=== PATIENT | female | born 1935 | race Caucasian/White ===

== ENCOUNTER 2016-07-07 12:44 | Inpatient (IN) | payer MEDICARE, MEDICAID ==
[~2016-07-07] VITALS: Ht 167.6 cm; Wt 66.3 kg
--- NOTE | ~2016-07-07 | PR ---
[place], [place] [facility]GR[id number] UN[facility] #: [id number] ROOM: 310 DOCTOR: TIGIST MENDES MD BIRTHDATE: [birth year] DOS: 07/11/2016 INTERVAL NOTE CHIEF COMPLAINT: "Good morning, is it time to eat breakfast." SUMMARY OF THE VISIT: The patient was interviewed as she reclined in a Graciela chair in the quiet room. She was resting at first but did awake as I approached her and responded appropriately at first to my questions. She tended later to trail off, and her responses tended to be more nonsensical the more we conversed. Nurses report she continues to exit seek and wander when up. She also continues to be more agitated in the evening hours. She did sleep after receiving the Vraylar and trazodone last night. She does seem to be tolerating the current medication regimen well. MENTAL STATUS: She is alert and oriented to self, maybe place but not time. Mood still is labile. Affect is inappropriate. Her responses tend to be short and simple, often inappropriate. There is no kobi or hypomania. There are no gross auditory or visual hallucinations noted. She has a great deal of time processing conversation, and short-term memory is exceedingly poor. PLAN: I will continue to titrate up the Exelon patch from 9.5 to 13.3 mg daily, maximizing its potential benefit to improve and maintain ADLs, behavior, and cognition. We will similarly increase the Namenda at a later date. Maintain her other psychotropics at this point in time. Engage in individual and mejia milieu activity with the ultimate plan to return to [facility] when stable. TIGIST MENDES MD CM:PNTRANS [id number] TIGIST MENDES MD 07/11/16 1103 interface
--- NOTE | ~2016-07-07 | PR ---
[place], [place] PROGRESS NOTE [id number] UNIT #: [id number] ROOM: 310 DOCTOR: CONNIE DEJESUS BIRTHDATE: [birth year] DOS: 07/12/2016 CHIEF COMPLAINT: "I just want a little off the top." SUMMARY OF VISIT: The patient was assessed in a Graciela-chair in the dining room where she had finished most of her breakfast. The patient was pleasantly confused. She thought I was her beautician and me on how to cut style and color her hair. MENTAL STATUS: Alert and oriented to self only. Again, pleasant. Affect is pleasant and appropriate, but she is grossly confused. There is no kobi or hypomania. No overt signs of auditory or visual hallucinations. Short-term memory is very poor. PLAN: We titrated the Exelon patch to the maximum dose of 13.3 mg yesterday. I am going to bump up the Namenda and change it to 5 mg in the morning and 10 mg at night, but I am also going to bump up her Vraylar to 4.5 mg q. day, see if I can help her clear a little. We will continue to try to engage in individual and mejia milieu therapy with plan to return back to [facility] once stable. VIANEY DEJESUS CNP CM:PNTRANS [id number] CONNIE DEJESUS 07/12/16 1202 interface
--- NOTE | ~2016-07-07 | WRIGHTHP ---
[place], [place] PATIENT HISTORY AND PHYSICAL EXAM [id number] UNIT #: [id number] ROOM: 310 DOCTOR: TIGIST MENDES MD BIRTHDATE: [birth year] DOS: 07/07/2016 INITIAL PSYCHIATRIC EVALUATION CHIEF COMPLAINT: "I am waiting for my father to come, let him know I am here please." SUMMARY OF THE VISIT: The patient was interviewed in the quiet room as she sat in a Graciela-chair. This is a 80-year-old white female who was sent here from [facility] in [place], [place]. The patient has been a patient there for several months and has had an escalation in her behavior. She has been extremely labile and very much verbally and physically aggressive towards others. She has been exit seeking and wandering in and out of other residents' rooms and attempting to leave the facility, requiring a great deal of redirection and a great deal of physical aggression on her part. Most recently, she had been started on Depakote to try to decrease some of the impulsivity; however, this caused her white count to dramatically decline. Subsequently, once the Depakote was discontinued, her white count has been increasing. In any case, she is admitted now to rule out organic factors, to attempt to stabilize on medication, ultimately returning back to [facility] when psychiatrically stable. PAST MEDICAL HISTORY: Remarkable for diabetes, GERD, anemia, gastric ulcer, osteoarthritis. MENTAL STATUS: The patient is alert and oriented to person only. It is unclear if she realizes she is in the hospital. She was very distraught this morning, looking for her father. She could not tell me how long she has been here nor could she tell me where she is. Even though she had breakfast in front of her, she could not tell me what she had eaten or what the food in front of her was. Her responses were very short and terse. She tended to derail and oftentimes answered questions totally inappropriately. DIAGNOSES: Brief psychotic disorder, rule out major depression, recurrent with psychotic features, and Alzheimer's dementia. PLAN: I have already started her on Vraylar 1.5 mg at bedtime. I will increase this to 3 mg at bedtime and monitor. I will start her on both Exelon patch 4.6 mg a day and Namenda 5 mg a day to address ADL maintenance, behavior and cognition. We will attempt to engage her in individual and mejia milieu activity with the plan to return home to [facility] when stable. [place], [place] PATIENT HISTORY AND PHYSICAL EXAM NAME: LIZZY WAGNER UNIT #: [id number] ROOM: 310 DOCTOR: TIGIST MENDES MD BIRTHDATE: [birth year] TIGIST MENDES MD CM:HISPHYS:PATIENT HISTORY AND PHYSICAL EXAMINATION 5 9 TIGIST MENDES MD 07/08/16920 interface
--- NOTE | ~2016-07-07 | PR ---
[place], [place] PROGRESS NOTE NAME: LIZZY WAGNER UNIT #: [id number] ROOM: 310 DOCTOR: TIGIST MENDES MD BIRTHDATE: [birth year] DOS: 07/10/2016 CHIEF COMPLAINT: "Oh Hi, there is funny stuff going on here." SUMMARY OF THE VISIT: The patient was interviewed in the dining area where she reclined in a Graciela chair. She engaged in superficial conversation that at times was grossly inappropriate to the questions asked of her. She talked a lot about her past and of gardening and having lots of scott in her yard. She was pleasantly confused for the most part. Nurses report she has periods where she becomes episodically agitated and exit seeks, but these seem to be starting to lessen slightly. MENTAL STATUS: She is alert and oriented to person, possibly place, although I do not think she truly realizes she is in the hospital, certainly not to time. Mood is still labile and at times, she is very inappropriate in her comments. Memory is very poor and she processes slowly. PLAN: I will maintain Exelon at 9.5 mg a day with the ultimate plan to titrate this up to its target dose of 13.3 mg daily. I will increase Namenda from 5 mg a day to 5 mg twice a day, maintain the Vraylar at 3 mg at bedtime and the trazodone at 50 mg at bedtime to prevent some sundowning, engage in individual and mejia milieu activity with the plan then to return to [facility] when stable. TIGIST MENDES MD CM:PNTRANS [id number] TIGIST MENDES MD 07/10/16 1515 interface
--- NOTE | ~2016-07-07 | DS ---
[place], [place] DISCHARGE SUMMARY NAME: LIZZY WAGNER [facility] #: [id number] UNIT #: [id number] ROOM: 310 DOCTOR: TIGIST MENDES MD BIRTHDATE: [birth year] DOS: 07/14/2016 CHIEF COMPLAINT: "I am waiting for my father to come, let him know I am here please." HISTORY OF PRESENT ILLNESS: This is a 80-year-old white female who was sent here from [facility] in [place], [place]. The patient has been there for several months and has had an escalation in her behavior. She is extremely labile and both verbally and physically aggressive towards others. She has been actively exit seeking and has been wandering in and out of other resident's rooms. She requires a great deal of redirection, and when redirected, has become verbally and physically aggressive. Most recently, she was started on Depakote to try to decrease some of this impulsivity; however, this caused her white count to dramatically decline. Subsequently, the Depakote was discontinued. Her white count then began to be normal again. She is admitted now to rule out organic factors and to stabilize on medication, ultimately returning back to [facility] when stable. PAST MEDICAL HISTORY: Remarkable for diabetes, GERD, anemia, gastric ulcer, and osteoarthritis. SUMMARY OF HOSPITAL COURSE: The patient was admitted to the unit where she was started on Vraylar 1.5 mg at bedtime to decrease the psychotic symptomatology that was present. She was also started back on Exelon patch 4.6 mg a day and Namenda 5 mg a day. She tolerated these medications well and gradually the Namenda was maximized out to its maximum dose of 10 mg twice daily. Likewise, the Exelon was increased to its maximum dose of 13.3 mg a day. Both of these were utilized to help maintain and improve ADLs, behavior, and cognition. The Vraylar was increased to its maximum dose during this stay at 4.5 mg at bedtime. Trazodone was added later because she was having a significant sleep disturbance, and with the combination of the Vraylar and the trazodone, her mood did stabilize, her wandering behavior ceased. She was able to be redirected more readily. She was much more pleasant and calm. She still was confused, but was able to be redirected. She had improved sufficiently by 07/14/2016 to be able to return to [facility] where I will follow her upon her return there. DIAGNOSES: Major depression, recurrent with psychotic features, and Alzheimer's dementia. DISPOSITION: To return to [place] [facility]. All of her prescriptions have been printed and will be sent with her. I will follow her upon her return there. [place], [place] DISCHARGE SUMMARY NAME: LIZZY WAGNER UNIT #: [id number] ROOM: 310 DOCTOR: TIGIST MENDES MD BIRTHDATE: [birth year] TIGIST MENDES MD CM:DISCHARG 4 7 TIGIST MENDES MD 07/14/16937 interface
--- NOTE | ~2016-07-07 | PR ---
[place], [place] PROGRESS NOTE [id number] UNIT #: [id number] ROOM: 310 DOCTOR: TIGIST MENDES MD BIRTHDATE: [birth year] DOS: 07/09/2016 CHIEF COMPLAINT: "There is silly things going on around this place." SUMMARY OF THE VISIT: The patient was attempted to be interviewed in the dining area. She had a sheet and was repeatedly spreading it out, folding it, and then refolding it. She did raise her eyes as I talked to another patient, who is grossly confused and shook her head. When I approached her to talk to her, she was somewhat derogatory about the other patients and stated that she has been seeing crazy things going on here. Nurses report that she tends to become more labile and more aggressive as the afternoon proceeds into evening. At this point, she becomes even verbally and physically aggressive. MENTAL STATUS: She is alert and oriented to person, possibly place, certainly not to time. Mood does still seem to be rather volatile when she is very easily upset. She redirects and escalante herself down relatively well at the present time. There is no overt auditory or visual hallucinations, delusions, or paranoia. Short-term memory is exceedingly poor. PLAN: I will change the time with the Vraylar from bedtime to 5 p.m. and I will also add trazodone 50 mg q.5 p.m. to decrease some of her mood lability and offer a sense of calmness. I will increase Exelon patch from 4.6 to 9.5 mg a day and make certain that she has Ativan 1 mg p.o. or IM every 4 hours as needed for agitation and anxiety, if she requires it. We will engage in individual and mejia milieu activity with a plan to return to [facility] when stable. TIGIST MENDES MD CM:PNTRANS [id number] TIGIST MENDES MD 07/09/16 1009 interface
--- NOTE | ~2016-07-07 | PR ---
[place], [place] PROGRESS NOTE [id number] UNIT #: [id number] ROOM: 310 DOCTOR: CONNIE DEJESUS BIRTHDATE: [birth year] DOS: 07/13/2016 CHIEF COMPLAINT: "Good morning." SUMMARY OF VISIT: The patient was assessed in the dining room where she was eating breakfast. She engaged in conversation, was pleasantly confused. I had seen her earlier working with physical therapy, walking the reinoso, physically appears to be getting a little bit stronger. MENTAL STATUS: She is alert and oriented to self, perhaps place. She knows that this is at home, not time. Affect pleasant and appropriate, but very confused. Yesterday, she thought I was her beautician, but today, she remembers see me in the reinoso working out. PLAN: I had increased her Vraylar yesterday. This seems to be helping and we maxed out her Exelon patch. We will continue to try to engage in individual and mejia milieu therapy. Continue with PT and OT to help her build up some strength. Long-term goal is to return her to [facility] once psychologically stable. VIANEY DEJESUS CNP CM:PNTRANS [id number] CONNIE DEJESUS 07/13/16 1012 interface
[2016-07-07] MEDS ORDERED: PANTOPRAZOLE SO40 MG PO (14:27)
[2016-07-07] MEDS ORDERED: IRON325 M1 PO (14:29)
[2016-07-07] MEDS ORDERED: GLIPIZIDE5 MG PO (14:30)
[2016-07-07] MEDS ORDERED: DOCUSATE SODIU100 MG PO (14:31)
[2016-07-07] MEDS ORDERED: VITAMIN D50000 I3 PO (14:31)
[2016-07-07] MEDS ORDERED: ATIVAN1 MG PO (14:32)
[2016-07-07 17:44] VITALS: BP 142/56
[2016-07-07 19:49] VITALS: BP 132/55
[2016-07-08 07:17] LABS: HEMOGLOBIN 9.7 g/dl (12.0-16.0); MEAN CELL VOLUME 109.9 fl (81.0-99.0); MEAN CORPUSCULAR HGB 35.5 pg (27.0-31.0); MEAN CORPUSCULAR HGB CONC 32.3 g/dl (33.0-37.0); MEAN PLATELET VOLUME 12.4 fl (9.6-12.3); PLATELET COUNT AUTOMATED 229 10*3/uL (130-400); RED BLOOD COUNT 2.73 10*6/uL (4.10-5.10); RED CELL DISTRI WIDTH 15.8 % (0-14.5); WHITE BLOOD COUNT 3.3 10*3/uL (4.8-10.8)
[2016-07-08 07:34] LABS: BASOPHIL # 0.1 10*3/uL (0-0.1); BASOPHILS 2 % (0-1); EOSINOPHIL # 0.1 10*3/uL (0-0.4); EOSINOPHILS 3 % (1-4); LYMPHOCYTE # 1.2 10*3/uL (1.3-4.4); MONOCYTE # 0.2 10*3/uL (0.1-1.0); NEUTROPHIL # 1.8 10*3/uL (2.3-7.9); NEUTROPHILS 54 % (47-73); TOTAL CELLS COUNTED 100 #CELLS
[2016-07-08 07:35] LABS: PLATELET SUFFICIENCY NORMAL (NORMAL); POLYCHROMASIA SLIGHT
[2016-07-08 07:43] VITALS: BP 132/52
[2016-07-08 07:47] LABS: BILIRUBIN, TOTAL 0.4 mg/dl (0.2-1.0); BUN 11 mg/dl (7-24); CARBON DIOXIDE 30 mmol/L (21-32); CHLORIDE 106 mmol/L (98-107); CHOLESTEROL 76 mg/dL (<200); EST GLOM FILT AFRICAN AMERICAN > 60 ml/min; GLUCOSE 193 mg/dL (65-99); HDL CHOLESTEROL 43 mg/dl (40-60); LDL CHOLESTEROL 23 mg/dL (9-159); POTASSIUM 3.6 mmol/L (3.5-5.1); SGOT/AST 12 IU/L (3-35); SGPT/ALT 20 U/L (12-78); SODIUM 143 mmol/L (136-145); TOTAL PROTEIN 6.9 gm/dL (6.4-8.2); TRIGLYCERIDES 49 mg/dl (<150); VLDL CHOLESTEROL 10 mg/dL (6-40)
[2016-07-08 07:53] LABS: HEMOGLOBIN A1c 6.8 % (4.8-5.6)
[2016-07-08 07:54] LABS: ALKALINE PHOSPHATASE 82 U/L (45-117)
[2016-07-08 09:26] LABS: VITAMIN D, 25-HYDROXY 47.3 ng/mL (30-100)
[2016-07-08 09:27] LABS: FOLIC ACID 16.14 ng/mL (>5.38)
[2016-07-09 07:45] VITALS: BP 134/53
[2016-07-09 14:20] LABS: BILIRUBIN NEGATIVE (NEGATIVE); BLOOD NEGATIVE (NEGATIVE); CLARITY CLEAR (CLEAR); COLOR YELLOW (YELLOW); GLUCOSE 3+ (NEGATIVE); KETONE NEGATIVE (NEGATIVE); LEUKO ESTERASE NEGATIVE (NEGATIVE); NITRITE NEGATIVE (NEGATIVE); PROTEIN NEGATIVE (NEGATIVE); SPECIFIC GRAVITY 1.025 (1.005-1.030); UROBILINOGEN 0.2 E.U./dl (0.2-1.0)
[2016-07-09 14:42] LABS: MUCOUS TRACE; URINE REFLEX COMMENT NO (NO)
[2016-07-09 19:48] VITALS: BP 134/56
[2016-07-10 08:00] VITALS: BP 132/52
[2016-07-10 09:38] LABS: HEMATOCRIT 31.2 % (37.0-47.0); MEAN CORPUSCULAR HGB 35.6 pg (27.0-31.0); MEAN CORPUSCULAR HGB CONC 32.1 g/dl (33.0-37.0); MEAN PLATELET VOLUME 12.7 fl (9.6-12.3); PLATELET COUNT AUTOMATED 256 10*3/uL (130-400); RED BLOOD COUNT 2.81 10*6/uL (4.10-5.10); RED CELL DISTRI WIDTH 15.8 % (0-14.5); WHITE BLOOD COUNT 2.9 10*3/uL (4.8-10.8)
[2016-07-10 10:04] LABS: BASOPHIL # 0.1 10*3/uL (0-0.1); BASOPHILS 2 % (0-1); EOSINOPHILS 1 % (1-4); LYMPHOCYTE # 0.8 10*3/uL (1.3-4.4); METAMYELOCYTES 3 % (0-0); MONOCYTE # 0.2 10*3/uL (0.1-1.0); MYELOCYTES 3 % (0-0); NEUTROPHIL # 1.6 10*3/uL (2.3-7.9); NEUTROPHILS 55 % (47-73); PLATELET SUFFICIENCY NORMAL (NORMAL); TEAR DROP CELLS FEW; TOTAL CELLS COUNTED 100 #CELLS
[2016-07-10 10:07] LABS: FREE T4 1.21 ng/dl (0.76-1.46)
[2016-07-10 10:12] LABS: THYROID STIM HORMONE (HS) 2.76 uIU/ml (0.358-4.75)
[2016-07-10 20:32] VITALS: BP 110/68
[2016-07-11 08:00] VITALS: BP 125/48
[2016-07-11 20:50] VITALS: BP 112/40
[2016-07-12 07:43] VITALS: BP 127/35
[2016-07-12 19:29] VITALS: BP 124/81
[2016-07-13 07:08] VITALS: BP 112/60
[2016-07-13 20:23] VITALS: BP 119/88
[2016-07-14 06:53] VITALS: BP 120/56
[2016-07-14] MEDS ORDERED: EXELON13.3 MG/21 T (09:00)
[2016-07-14] MEDS ORDERED: VRAYLAR4.5 MG PO (09:00)
[2016-07-14] MEDS ORDERED: MEMANTINE HCL10 MG PO ×2 (09:00)
[2016-07-14] MEDS ORDERED: TRAZODONE50 MG PO (09:00)
[2016-07-14] MEDS ORDERED: VITAMIN D50000 I3 PO (09:00)
== END 2016-07-14 13:13 | DRG 885 ==
LOC: 3N 12:44
PROVIDERS: Internal Medicine; Psychiatry & Neurology Psychiatry
DX: F33.3 Major depressive disorder, recurrent, severe with psychotic symptoms (principal); E11.9 Type 2 diabetes mellitus without complications; F28 Other psychotic disorder not due to a substance or known physiological condition; G30.9 Alzheimer's disease, unspecified; F02.81 Dementia in other diseases classified elsewhere, unspecified severity, with behavioral disturbance; K25.9 Gastric ulcer, unspecified as acute or chronic, without hemorrhage or perforation; D64.9 Anemia, unspecified; F41.9 Anxiety disorder, unspecified; K21.9 Gastro-esophageal reflux disease without esophagitis; M19.90 Unspecified osteoarthritis, unspecified site